=== PATIENT | male | born 1995 | race Caucasian/White ===

== ENCOUNTER 2024-02-23 19:28 | Emergency (ER) | payer MEDICAID, SELFPAY ==
[2024-02-23 19:38] VITALS: BP 139/87; PULSE 106; RESP 18; TEMP 37.4; O2SAT 96
--- NOTE | 2024-02-23 19:45 | DI.RAD_ITS ---
Exam(s) XR CHEST 2V PA LATERAL EXAM: XR CHEST 2V PA LATERAL CLINICAL HISTORY: cough, productive TECHNIQUE: 2D digital imaging was performed. Two views. COMPARISON: No exams were available for comparison FINDINGS: HEART: Normal size. Aorta: Not dilated. PULMONARY VASCULATURE: Normal. LUNGS: Clear. PLEURAL SPACE: No pleural effusion or pneumothorax. BONE:Unremarkable for age. Soft tissues: Unremarkable. IMPRESSION: No acute abnormality. DATA REPOSITORY: RADIATION DOSE DELIVERED:
--- NOTE | 2024-02-23 19:53 | ED.GENADUL_ITS ---
Discharge Plan Disposition Patient Disposition: Home Condition: Stable Discharge Details Clinical Impression: Viral syndrome Primary Care Provider: Dorcas,Local ED Provider: Gregory Sales Home Meds and New Rx's Prescriptions: No Action levothyroxine [Euthyrox] 112 mcg tablet 112 mcg PO DAILY testosterone 200 mg pellet 200 mg subcut .weekly Rx Instructions: as a single dose Discharge Instructions Instructions: Viral Syndrome (ED) Additional Instructions: You were seen in the emergency department for your likely viral syndrome onset 1 day ago. We usually do not prescribe antibiotics for 1 day onset of upper respiratory infection. There is no pneumonia or bronchial thickening seen on your chest x-ray and your COVID/flu/RSV swab is negative. Suggest to continue using regular Mucinex to encourage coughing and expelling of mucus. Please use therapeutic dosing of Tylenol (acetamenophen) & Advil (ibuprofen) in an alternating fashion as follows: Take 1000mg of Tylenol every 6 hours without missing doses- that is 4 times per day. Residential in between the Tylenol dosings, take 400-600mg of Advil also on a 6 hour schedule, that is also 4 times per day. The daily maximum dosing of Tylenol is 4000mg, and the daily maximum dosing of Advil is 2400mg. This is safe to do for weeks. Please note that some common cold medications & prescription pain medications may contain acetamenophen and you need to read OTC drug labels and factor that in to maximum daily dosings. Use salt water gargles 3 times per day, use tea with honey for any throat irritation. He should begin to improve in about 7 days if you have worsening around this time it is likely bacterial and would warrant empiric antibiotics at that point. Please return to the emergency department for any severe vocal changes, excessive drooling or inability to manage her secretions, inability to open and close her jaw or profound shortness of breath. Stand Alone Forms: Work Release HPI General Date/Time Provider Initiated Documentation: 02/23/24 19:42 . HPI Narrative: 28 year-old male presents to ED today by POV/ambulating with his girlfriend with a chief complaint of cough, congestion, headache, body aches, nausea, sore throat with onset two nights ago. Quality described as mostly congestion, is coughing up yellow sputum but is an active smoker, no radiation to high fever, chest pain, respiratory distress, excessive drooling, severe vocal changes, difficulty managing secretions or p.o. intake. Severity is described as moderate. Palliating factors include zuzt-rvs-jfabjyq cold medicines without relief. Provoking factors include nothing specific. Events leading up to the incident/Associated Symptoms: Patient works in the [employer] and called out of work today needs work note. Patient not anticoagulated. Related Data Home Medications Medication Instructions Recorded Confirmed levothyroxine 112 mcg tablet 112 mcg PO DAILY 02/23/24 02/23/24 (Euthyrox) testosterone 200 mg implant pellet 200 mg subcut .weekly 02/23/24 02/23/24 General Stated Complaint: Sorethroat DON: 4 Review of Systems All systems reviewed & are unremarkable except as noted in HPI and below Exam Narrative Exam Narrative: GENERAL APPEARANCE: Well-nourished, non-toxic, awake and alert, atraumatic, no acute distress. SKIN: Warm, pink, dry, intact, without rashes/lesions/ulcerations. HEAD: Normocephalic, atraumatic, normal hair distribution for gender/age. EYES: Pupils PERRLA, EOMs intact without nystagmus, normal conjunctiva, no exudates on lids/lashes. ENT: Nares patent, no circumoral cyanosis, no facial swelling, benign posterior oropharynx, no exudate, uvula midline, no neck swelling or rigidity NECK: Supple, trachea midline, painless cervical ROM. LUNGS/CHEST: Lungs CTA bilaterally- no rhonchi/rales/wheezes diffusely, non- labored respirations, normal A/P diameter, symmetrical expansion, no chest wall deformity HEART (CV/PV): Regular rate and rhythm without murmur, no peripheral edema, no JVD. ABDOMEN: Soft, non-distended, no guarding, no tenderness. MSK: Normal ROM, no swelling/deformity to bilateral UEs or LEs, moving all extremities without weakness, no cyanosis, spine midline without tenderness, normal curvature. NEURO: Mental Status AAOx4 - alert to person, place, time, events No facial droop, no forehead involvement. Motor: No focal weakness - strength 5/5 in bilateral UEs and LEs, proximal and distal, symmetric. Sensory: sensation intact to light touch globally. Gait normal: patient ambulated without ataxia into ED room. PSYCH: euthymic, cooperative, pleasant, appropriate speech Course Vital Signs Vital signs: Vital Signs Temperature 37.4 C 02/23/24 19:38 Pulse 106 H 02/23/24 19:38 Respiratory Rate 18 02/23/24 19:38 Blood Pressure 139/87 02/23/24 19:38 Pulse Oximetry 96 02/23/24 19:38 Temperature 37.4 C 02/23/24 19:38 Temperature Source Temporal Artery Scan 02/23/24 19:38 Pulse 106 H 02/23/24 19:38 Respiratory Rate 18 02/23/24 19:38 Blood Pressure 139/87 02/23/24 19:38 Pulse Oximetry 96 02/23/24 19:38 Oxygen Delivery Method Room Air 02/23/24 19:38 Oxygen Flow Rate 0 02/23/24 19:38 Medical Decision Making This dictation utilizes [id number] dictation software and may contain unedited grammatical errors. 28 y/o M presents to ED today with a chief complaint of onset of cough and congestion 2 nights ago, managing secretions well, tolerating p.o. intake, no high fevers, no respiratory distress, coughing up yellow sputum and has sinus congestion without sore throat as focal, endorses nausea and headache. Patient did call out of work today and is requesting work note. Patients' medical history: Negative, otherwise healthy. Family and social history: Noncontributory. Pertinent exam findings / vital signs include managing secretions well, benign posterior oropharynx, no respiratory distress, lungs CTA, nontoxic vitals. Differential / pathologies of concern include viral syndrome, URI, COVID/flu, pneumonia, bronchitis, unlikely strep with cough. Diagnostic studies of: -COVID/flu/RSV-negative -Chest x-ray shows no bronchial thickening, no pneumonia. Interventions of: -Recommend he perform lioe-sne-uwejwdl aggressive treatment with Mucinex, APAP, NSAIDs, salt water gargles, tea with honey. ED Course/Assessment/Plan: 28-year-old otherwise healthy male presents with an upper respiratory infection with multisystem complaints consistent with a viral syndrome. I do not suspect any severe bacterial illness and he has stable vitals and is in no acute distress, I counseled some watchful waiting until day 7-10 for likely clearance of viral illness otherwise empiric antibiotics at that time, counseled on therapeutic dosing of ufxe-iwa-bjhnkce cold medicines. Findings not consistent with respiratory distress, [employer]/RPA, meningismus, sepsis. Disposition of Viral Syndrome. Patient verbalized understanding of the plan and return to ED criteria and engaged in shared decision making. Medical Records Medical records reviewed: Yes I reviewed the patient's medical records. Imaging Data Radiologic Study: Attestation: I personally reviewed and interpreted this imaging study as follows: Imaging: X-Ray Radiologist's impression: Exam: XR Chest Exam date and time: 02/23/2024 8:09 PM Age: 28 years old Clinical indication: Patient HX: Cough, productive TECHNIQUE: Imaging protocol: Radiologic exam of the chest. Views: 2 views. COMPARISON: No relevant prior studies available. FINDINGS: Lungs: Normal pulmonary expansion. Pulmonary vasculature grossly normal. No gross pulmonary infiltrates or edema pattern. Pleural spaces: No pleural effusion. No pneumothorax. Heart/Mediastinum: Heart size normal. No tracheal/mediastinal shift. Bones/joints: No acute osseous abnormalities are identified. IMPRESSION: No acute thoracic process. Dictated and Authenticated by: Raghu Jiménez MD. Ordering:GARY Jenkins MD Lab Data Lab results reviewed: Yes I reviewed the patient's lab results. Labs: Laboratory Tests Range/Units 02/23/24 20:00 COVID-19 Source Nasopharynx SARS-CoV-2 (PCR) (Negative) Negative Influenza Type A (PCR) (Negative) Negative Influenza Type B (PCR) (Negative) Negative RSV (PCR) (Negative) Negative Quality:SDOH Health Related Social Needs: No Data to Display PFSH All Active Problems (Updated 02/23/24 @ 21:02 by ALISON Beltrán) Viral syndrome (Acute) Social History Smoking risk assessment performed?: No
--- NOTE | 2024-02-23 20:39 | DI.VRAD_ITS ---
PROCEDURE INFORMATION: Exam: XR Chest Exam date and time: 02/23/2024 8:09 PM Age: 28 years old Clinical indication: Patient HX: Cough, productive TECHNIQUE: Imaging protocol: Radiologic exam of the chest. Views: 2 views. COMPARISON: No relevant prior studies available. FINDINGS: Lungs: Normal pulmonary expansion. Pulmonary vasculature grossly normal. No gross pulmonary infiltrates or edema pattern. Pleural spaces: No pleural effusion. No pneumothorax. Heart/Mediastinum: Heart size normal. No tracheal/mediastinal shift. Bones/joints: No acute osseous abnormalities are identified. IMPRESSION: No acute thoracic process. Dictated and Authenticated by: Raghu Jiménez MD. Ordering:GARY Jenkins MD
[2024-02-23 20:46] LABS: COVID-19 PCR Negative (Negative); Influenza A PCR Negative (Negative); Influenza B PCR Negative (Negative); RSV PCR Negative (Negative); Source Nasopharynx
[2024-02-23] MEDS: Ondansetron O.D.T. 4 MG TABEF, 3 TABS/BTL PO (21:16)
[2024-02-23 21:18] VITALS: PULSE 94; RESP 18; O2SAT 96
== END 2024-02-23 21:28 | disposition home or self-care (01) ==
PROVIDERS: Emergency Provider Physician Assistant
DX: R05.1 Acute cough (principal); R07.0 Pain in throat; R51.9 Headache, unspecified; B34.9 Viral infection, unspecified
CPT/HCPCS: 87637; 99283; 71046

== ENCOUNTER 2024-04-27 14:08 | Emergency (ER) | payer MEDICAID, SELFPAY ==
[2024-04-27 14:33] VITALS: BP 124/72; PULSE 82; RESP 16; TEMP 36.3; O2SAT 97
== END 2024-04-27 15:32 | disposition left against medical advice (07) ==
LOC: ER 14:49
DX: Z53.21 Procedure and treatment not carried out due to patient leaving prior to being seen by health care provider (principal)

== ENCOUNTER 2025-04-08 18:27 | Emergency (ER) | payer MEDICAID, SELFPAY ==
[2025-04-08 18:28] VITALS: BP 129/83; PULSE 87; RESP 14; TEMP 36.5; O2SAT 97
[2025-04-08 18:34] VITALS: BP 129/83; PULSE 87; RESP 14; TEMP 36.5; O2SAT 97
--- NOTE | 2025-04-08 18:52 | W.ED.GENAD ---
Discharge Plan Disposition Patient Disposition: Home Condition: Stable Discharge Details Clinical Impression: Swelling associated with dental structure Primary Care Provider: Unknown,Unknown ED Provider: Saida Alcocer Home Meds and New Rx's Prescriptions: New amoxicillin-pot clavulanate 875-125 mg tablet 1 tab PO BID 7 Days Qty: 14 0RF No Action levothyroxine [Euthyrox] 112 mcg tablet 112 mcg PO DAILY Discharge Instructions Instructions: Dental Pain (DC) Additional Instructions: You were seen in the emergency department today for evaluation of swelling in the area of your recent dental extraction. In our department had a full physical examination performed and had reassuring vital signs. Is possible that you are developing an early infection in this area, and I have provided you with a prescription for antibiotics. If you start these antibiotics, please take all of them until they are gone, even if you start to feel better. Please do not utilize these antibiotics or any other sorts of infections in the future, you should throw them away if you are not going to take them after you have filled the prescription. Please use therapeutic dosing of Tylenol (acetaminophen) & Advil (ibuprofen) in an alternating fashion as follows: Take 1000mg of Tylenol every 6 hours without missing doses- that is 4 times per day. Intermediate in between the Tylenol doses, take 600mg of Advil also on a 6 hour schedule, that is also 4 times per day. With this strategy, you will be taking something for fever/pain as often as every 3 hours. The daily maximum dosing of Tylenol is 4000mg, and the daily maximum dosing of Advil is 2400mg. Please note that some common cold medications & prescription pain medications may contain acetaminophen and you need to read OTC drug labels and factor that in to maximum daily doses. Please follow-up with your primary care provider in the next few days to discuss this visit and any symptoms that change, worsen, or persist. Thank you for allowing us to be part of your care. Discharge Data Discharge Date/Time-TO BE ENTERED AT DEPARTURE: 04/08/25 18:59 HPI General Mode of arrival: ambulatory. Date/Time Provider Initiated Documentation: 04/08/25 18:28. Limitations to Documentation: no limitations. Information obtained by: patient, family and old records reviewed. HPI Narrative: This is a 29-year-old male patient presenting for a concern for dental swelling/infection after extraction. The patient had his left lower molar and a right upper molar extracted on Friday, states that he has been feeling quite well, with controlled pain, but noted some swelling in the left lower molar area. He states that he noticed a change in the color of the scab over the wound bed, and is concerned that he either has pus there or got food stuck in it. He has not had fevers or chills, is tolerating p.o., denies facial swelling or visual acuity changes. He did take antibiotics for a dental infection prior to extraction. Related Data Home Medications ?Medication ?Instructions ?Recorded ?Confirmed levothyroxine 112 mcg tablet 112 mcg PO DAILY 02/23/24 04/08/25 (Euthyrox) amoxicillin 875 mg-potassium 1 tab PO BID 7 days #14 tabs 04/08/25 clavulanate 125 mg tablet Previous Rx's ?Medication ?Instructions ?Recorded amoxicillin 875 mg-potassium 1 tab PO BID 7 days #14 tabs 04/08/25 clavulanate 125 mg tablet Allergies Allergy/AdvReac Type Severity Reaction Status Date / Time No Known Allergies Allergy Unverified 04/08/25 18:32 General Stated Complaint: DentalOral DON: 4 Exam Narrative Exam Narrative: Gen: Awake and alert, in no apparent distress HEENT: Non-icteric sclera, EOMs are full and without diplopia or nystagmus. No facial swelling, some dental caries are appreciated in the small amount of swelling without purulent drainage, redness or induration is appreciated over the lower molar region. Neck: Supple, no lymphadenopathy Lungs: No apparent respiratory distress, normal respiratory effort. CV: Appears well perfused Abdomen: Non-distended MSK: Moves 4 extremities without apparent limitation in ROM Skin: Visualized skin without rashes, cyanosis. Neuro: Normal Gait, no obvious focal deficits or facial asymmetry. Speaks in full, clear sentences. Psych: Appropriate for situation. Course Vital Signs Vital signs: Vital Signs Temperature 36.5 C 04/08/25 18:28 Pulse 87 04/08/25 18:28 Respiratory Rate 14 04/08/25 18:28 Blood Pressure 129/83 04/08/25 18:28 Pulse Oximetry 97 04/08/25 18:28 Temperature 36.5 C 04/08/25 18:34 Temperature Source Oral 04/08/25 18:34 Pulse 87 04/08/25 18:34 Respiratory Rate 14 04/08/25 18:34 Blood Pressure 129/83 04/08/25 18:34 Blood Pressure Position Sitting 04/08/25 18:34 Pulse Oximetry 97 04/08/25 18:34 Oxygen Delivery Method Room Air 04/08/25 18:34 Oxygen Flow Rate 0 04/08/25 18:34 Pain Level 0 04/08/25 18:34 Medical Decision Making This is a 29-year-old male patient presenting for concern for dental infection. My differential includes but is not limited to early dental infection, normal postextraction healing, dry socket, though the patient is reassuringly pain free at this time. No concerning exam findings for deep space neck infection. Patient is hemodynamically well without any SIRS or sepsis criteria met. I had a shared decision-making conversation with this patient regarding antibiotics versus watchful waiting, and they have ultimately elected to proceed with antibiosis. A 1 week course of Augmentin was sent to his pharmacy. He will contact his dental provider to schedule follow-up visit. At this time, the patient has had a full medical evaluation and is safe for discharge to home. They are hemodynamically stable, ambulatory, and tolerating PO. They are understanding of the follow-up plan and return precautions. They left our facility without incident. Saida Alcocer MD [facility] All Active Problems (Updated 04/08/25 @ 18:53 by Saida Alcocer MD) Swelling associated with dental structure (Acute) Impacted cerumen of both ears (Acute) Social History Smoking/Tobacco Use Status: Current every day Tobacco Type: pipe Smoking risk assessment performed?: Yes Alcohol Intake: never Drug use: Daily Substance use type: marijuana Do you feel safe at home: Yes Do you feel safe in your relationship?: Yes
== END 2025-04-08 18:59 | disposition home or self-care (01) ==
PROVIDERS: Emergency Provider Emergency Medicine
DX: K08.89 Other specified disorders of teeth and supporting structures (principal); F17.290 Nicotine dependence, other tobacco product, uncomplicated; Z98.818 Other dental procedure status
CPT/HCPCS: 99283